=== PATIENT | female | born 1935 | race African-American/Black ===

== ENCOUNTER 2018-06-12 10:05 | Inpatient (IN) | payer OTHER ==
[~2018-06-12] VITALS: Ht 170.2 cm; Wt 84.5 kg
[~2018-06-12 10:05] MED LIST: AMLO5TAB13 PO; BENA40TA7 PO; DULO20CA PO; FERR-20 PO; GABA300C10 PO; METF-370 PO; METO-159 PO; OMEP20CA74 PO
[2018-06-12] MEDS ORDERED: SODIUM CHLORIDE 0.9% 1,000 ML IV ONE (11:22)
[2018-06-12] MEDS ORDERED: ONDANSETRON HCL 4 MG/2 ML VIAL IV ONE ×2 (11:30→14:30)
[2018-06-12] MEDS ORDERED: KETOROLAC TROMETH 30 MG/ML 1ML VIAL IV ONE (11:30)
[2018-06-12] MEDS ORDERED: MORPHINE SULFATE 4 MG/ML SYR/VIAL IV ONE (14:30)
[2018-06-12] MEDS ORDERED: TEMAZEPAM 15 MG CAP PO PRN (17:00)
[2018-06-12] MEDS ORDERED: MORPHINE SULFATE 4 MG/ML SYR/VIAL IV PRN ×2 (17:00)
[2018-06-12] MEDS ORDERED: ACETAMINOPHEN 500 MG TAB PO PRN (17:00)
[2018-06-12] MEDS ORDERED: HYDROcodone-ACET 5/325MG TAB PO PRN (17:00)
[2018-06-12] MEDS ORDERED: LACTULOSE 20Gm/30ML SOLN PO PRN (17:00)
[2018-06-12] MEDS ORDERED: ONDANSETRON HCL 4 MG/2 ML VIAL IV PRN (17:00)
[2018-06-12] MEDS: InsuLIN REG 1unit/0.01ml Soln (100units/ml) SC SCH ×2 (17:00→21:37)
[2018-06-12] MEDS ORDERED: LORazepam 0.5 MG TAB PO PRN (17:00)
[2018-06-12] MEDS ORDERED: NITROGLYCERIN 0.4 MG SL TAB SL PRN (17:00)
[2018-06-12] MEDS ORDERED: DEXTROSE (50%) 50ML SYRG IV PRN (17:00)
[2018-06-12] MEDS: ACCU-CHEK COMFORT CURVE STRIP VI SCH ×2 (17:28→21:38)
[2018-06-12] MEDS: SODIUM CHLORIDE 0.9% 1,000 ML IV SCH (17:28)
[2018-06-12] MEDS: metFORMIN HYDROCHLORIDE 500 MG TAB PO SCH (19:20)
[2018-06-12 19:24] LABS: Basophils # (auto) 0.1 uL; Basophils % (auto) 0.5 % (0.0-2.0); Eosinophils # (auto) 0.2 uL; Eosinophils % (auto) 1.7 % (0.0-7.0); Hematocrit 36.8 % (36.0-46.0); Hemoglobin 12.2 g/dL (12.2-16.2); Lymphocytes # (auto) 2.7 uL; Lymphocytes % (auto) 25.9 % (10.0-50.0); Mean Corpuscular Hemoglobin 29.7 pg (28.0-32.0); Mean Corpuscular Hgb Conc. 33.2 g/dL (32.0-36.0); Mean Corpuscular Volume 89.6 fL (80.0-100.0); Monocytes # (auto) 0.9 uL; Monocytes % (auto) 9.2 % (0.0-12.0); Neutrophils # (auto) 6.4 uL; Neutrophils % (auto) 62.7 % (37.0-80.0); Nucleated Red Blood Cells % 0.1 %; Platelet Count (auto) 227 10^3/uL (140-450); Red Blood Cells 4.11 10^6/uL (4.0-5.20); Red Cell Distribution Width 12.8 % (11.8-14.3); White Blood Cell 10.2 10^3/uL (4.4-10.8)
[2018-06-12 19:38] LABS: INR 0.94 (0.9-1.15); Partial Thromboplastin Time 22.9 sec (23.78-33.04); Prothrombin Time 10.1 sec (9.27-12.13)
[2018-06-12 19:40] LABS: Albumin 3.4 g/dL (3.4-5.0); Calcium 8.8 mg/dL (8.5-10.1)
[2018-06-12 19:42] LABS: Bilirubin, Total 0.3 mg/dL (0.2-1.0)
[2018-06-12 19:48] LABS: Potassium 5.6 mmol/L (3.5-5.1)
[2018-06-12 21:19] VITALS: BP 121/76
[2018-06-12] MEDS ORDERED: SODIUM POLYSTYRENE SULF 15 GM POWDER PO ONE (21:30)
[2018-06-12 22:00] VITALS: BP 121/76
[2018-06-12] MEDS ORDERED: GABAPENTIN 300 MG CAP PO SCH (22:00)
[2018-06-13] MEDS ORDERED: OXYB15TA12 PO (01:05)
[2018-06-13] MEDS ORDERED: ASP81EC PO (01:05)
[2018-06-13] MEDS ORDERED: SPIR50TA5 PO (01:05)
[2018-06-13] MEDS: SODIUM CHLORIDE 0.9% 1,000 ML IV SCH ×2 (04:51→16:37)
[2018-06-13 05:00] VITALS: BP 122/59
[2018-06-13 06:32] LABS: Cholesterol 116 mg/dL (< 200); HDL Cholesterol 36 mg/dL (40-59); LDL Cholesterol 74 mg/dL (< 100); Triglycerides 140 mg/dL (< 150)
[2018-06-13] MEDS: ACCU-CHEK COMFORT CURVE STRIP VI SCH ×3 (07:00→17:48)
[2018-06-13] MEDS: InsuLIN REG 1unit/0.01ml Soln (100units/ml) SC SCH ×3 (07:00→17:00)
[2018-06-13] MEDS: metFORMIN HYDROCHLORIDE 500 MG TAB PO SCH ×2 (07:31→17:49)
[2018-06-13 08:00] VITALS: BP 100/67
[2018-06-13 08:05] VITALS: BP 100/67
[2018-06-13] MEDS: amLODIPine BESYLATE 5 MG TAB PO SCH ×2 (09:26→13:33)
[2018-06-13] MEDS ORDERED: FERROUS SULFATE 325 MG TAB PO SCH (10:00)
[2018-06-13] MEDS ORDERED: BENAZEPRIL HCL 10 MG TAB PO SCH (10:00)
[2018-06-13] MEDS ORDERED: GABAPENTIN 100 MG CAP PO SCH (10:00)
[2018-06-13] MEDS ORDERED: PANTOPRAZOLE 40 MG TAB PO SCH (10:00)
[2018-06-13] MEDS ORDERED: METOPROLOL SUCCINATE XL 50 MG TAB PO SCH (10:00)
[2018-06-13] MEDS ORDERED: DULOXETINE HCL 20 MG PO SCH (10:00)
[2018-06-13] MEDS ORDERED: NITROGLYCERIN 0.2MG/HR TOPICAL PATCH TD SCH (10:00)
[2018-06-13 10:48] LABS: BUN/Creatinine Ratio 11.5; Calcium 9.2 mg/dL (8.5-10.1); Potassium 5.2 mmol/L (3.5-5.1)
[2018-06-13] MEDS ORDERED: SODIUM POLYSTYRENE SULF 15 GM POWDER PO ONE (11:15)
[2018-06-13 12:22] VITALS: BP 132/66
[2018-06-13 17:12] VITALS: BP 123/58
[2018-06-13] MEDS ORDERED: GABAPENTIN 300 MG CAP PO SCH (22:00)
== END 2018-06-13 19:15 | disposition short-term general hospital (02) | DRG 563 ==
LOC: EDBD 10:05 → ER 10:05 → TELE 10:06 → TELE-WESTW 20:21
PROVIDERS: ADMIT Internal Medicine; ATTEND Internal Medicine
DX: S82.852A Displaced trimalleolar fracture of left lower leg, initial encounter for closed fracture (principal); I10 Essential (primary) hypertension; E78.5 Hyperlipidemia, unspecified; I12.9 Hypertensive chronic kidney disease with stage 1 through stage 4 chronic kidney disease, or unspecified chronic kidney disease; N18.9 Chronic kidney disease, unspecified; E11.22 Type 2 diabetes mellitus with diabetic chronic kidney disease; E11.42 Type 2 diabetes mellitus with diabetic polyneuropathy; R60.9 Edema, unspecified; I25.10 Atherosclerotic heart disease of native coronary artery without angina pectoris; W01.0XXA Fall on same level from slipping, tripping and stumbling without subsequent striking against object, initial encounter; Y93.01 Activity, walking, marching and hiking; Y92.090 Kitchen in other non-institutional residence as the place of occurrence of the external cause; I25.2 Old myocardial infarction; Y99.8 Other external cause status
CPT/HCPCS: 36415; 71045; 73590; 73610; 73630; 73700; 80048; 80053; 80061; 82550; 82962; 83036; 83880; 84443; 85025; 85610; 85730; 86850; 86900; 86901; 87081; 93306; 93926; 96361; 96374; 96375; J1885; J2405

== ENCOUNTER → 2020-05-12 | Emergency (ER) | payer OTHER ==
[~2020-05-12] VITALS: Ht 170.2 cm; Wt 90.7 kg
[~2020-05-12] MED LIST changes: -AMLO5TAB13 PO; +AMLO5TAB15 PO; +ASPI-394 PO; +OXYB15TA12 PO; +SPIR50TA5 PO
[2020-05-13 05:08] VITALS: BP 164/77
== END | disposition home or self-care (01) ==
LOC: EDUNIT# 18:37 → ER 18:38 → EDBD 18:38
DX: S82.302A Unspecified fracture of lower end of left tibia, initial encounter for closed fracture (principal); S82.832A Other fracture of upper and lower end of left fibula, initial encounter for closed fracture; Z79.899 Other long term (current) drug therapy; W19.XXXA Unspecified fall, initial encounter; Y93.89 Activity, other specified; Y92.89 Other specified places as the place of occurrence of the external cause; Y99.8 Other external cause status
CPT/HCPCS: 73590